=== PATIENT | male | born 1940 | race Two or more races ===

== ENCOUNTER 2022-05-17 09:54 | Outpatient (CLI) | payer SELFPAY ==
[2022-05-17] MEDS ORDERED: LIDOCAINE SOLN 4% 50 ML BOTTLE ONE (10:08)
[2022-05-17] MEDS ORDERED: CADEXOMER IODINE UD 5 GM TUBE ONE (11:09)
== END 2022-05-17 23:59 | disposition home or self-care (01) ==
LOC: WOU 09:54
PROVIDERS: ATTEND Podiatrist Foot & Ankle Surgery
DX: I73.9 Peripheral vascular disease, unspecified (principal); L97.528 Non-pressure chronic ulcer of other part of left foot with other specified severity; M86.172 Other acute osteomyelitis, left ankle and foot; M20.42 Other hammer toe(s) (acquired), left foot; M66.20 Spontaneous rupture of extensor tendons, unspecified site; Z79.02 Long term (current) use of antithrombotics/antiplatelets; Z79.82 Long term (current) use of aspirin
CPT/HCPCS: G0463